=== PATIENT | female | born 1975 | race Two or more races ===

== ENCOUNTER → 2016-11-08 | Outpatient (CLI) | payer BC ==
[~2016-11-08] MED LIST: CETI10CA PO; OMEP-110 PO; VENL37.52 PO
== END ==
LOC: STAR 08:15
PROVIDERS: ATTEND Orthopaedic Surgery
DX: Z02.9 Encounter for administrative examinations, unspecified (principal)

== ENCOUNTER 2016-11-15 08:13 | Day surgery (SDC) | payer BC ==
[~2016-11-15] VITALS: Ht 162.6 cm; Wt 101.2 kg
[~2016-11-15 08:13] MED LIST changes: +BUPIVACAINE/PF 0.5% ONE
[2016-11-15] MEDS ORDERED: LACTATED RINGERS 1,000 ML IV SCH (08:37)
[2016-11-15 08:38] VITALS: BP 125/86
[2016-11-15] MEDS ORDERED: LIDOCAINE 1%, 2ML SQ PRN (09:00)
[2016-11-15] MEDS ORDERED: FENTANYL PF 100 MCG/2ML ONE ×3 (09:06→12:17)
[2016-11-15] MEDS ORDERED: MIDAZOLAM 1 MG/ML, 2ML ONE (09:06)
[2016-11-15 09:16] LABS: HCG UR OBC PASS
[2016-11-15] MEDS ORDERED: EPINEPHRINE 1 MG/ML, 1ML ONE ×2 (10:26→14:27)
[2016-11-15] MEDS ORDERED: LIDOCAINE/PF 1%, 30ML ONE (10:26)
[2016-11-15] MEDS ORDERED: ALBUTEROL/IPRATROPIUM 2.5MG/0.5MG, 3 ML NPPB PRN (11:30)
[2016-11-15] MEDS ORDERED: PROMETHAZINE 25 MG/ML, 1ML IV PRN (11:30)
[2016-11-15] MEDS ORDERED: ACETAMINOPHEN 325 MG TABLET PO PRN (11:30)
[2016-11-15] MEDS ORDERED: OXYcodone 5 MG/5 ML ORAL.SOL UDC PO PRN (11:30)
[2016-11-15] MEDS ORDERED: hydrALAzine 20 MG/ML, 1ML IV PRN (11:30)
[2016-11-15] MEDS ORDERED: MIDAZOLAM 1 MG/ML, 2ML IV PRN (11:30)
[2016-11-15] MEDS ORDERED: ONDANSETRON 2MG/ML, 2ML IVPush PRN (11:30)
[2016-11-15] MEDS ORDERED: LABETALOL 5MG/ML, 20ML IV PRN (11:30)
[2016-11-15] MEDS ORDERED: MEPERIDINE/PF 25MG/0.5ML IVPush PRN (11:30)
[2016-11-15] MEDS ORDERED: MEPERIDINE/PF 25MG/0.5ML ONE (12:07)
[2016-11-15] MEDS ORDERED: OXYcodone 5 MG/5 ML ORAL.SOL UDC ONE ×3 (12:17→15:46)
[2016-11-15] MEDS ORDERED: ACETAMINOPHEN 650 MG/20.3 ML UDC ONE (12:17)
[2016-11-15] MEDS ORDERED: ACETAMINOPHEN 325 MG/10.15 ML UDC ONE (12:17)
[2016-11-15] MEDS: FENTANYL PF 100 MCG/2ML IV PRN ×2 (12:20→12:30)
[2016-11-15] MEDS ORDERED: HYDROmorphone 1 MG/ML, 1ML ONE (12:32)
[2016-11-15] MEDS: HYDROmorphone 1 MG/ML, 1ML IV PRN ×3 (12:34→15:12)
[2016-11-15] MEDS ORDERED: ADENOSINE 6 MG/2 ML ONE ×2 (12:45→12:56)
[2016-11-15] MEDS ORDERED: ESMOLOL 100 MG/10 ML ONE (12:59)
[2016-11-15] MEDS ORDERED: METOPROLOL 1 MG/ML, 5ML ONE ×3 (13:08→14:34)
[2016-11-15] MEDS: METOPROLOL 1 MG/ML, 5ML IVPush PRN ×6 (13:08→14:40)
[2016-11-15] MEDS ORDERED: ESMOLOL/NS PMX 250 ML IV STA (13:14)
[2016-11-15] MEDS ORDERED: ADENOSINE 6 MG/2 ML IVPush ONE ×2 (13:30)
[2016-11-15] MEDS ORDERED: METOCLOPRAMIDE 5 MG/ML, 2ML ONE (16:41)
[2016-11-15] MEDS ORDERED: DEXAMETHASONE 4 MG/ML, 1ML ONE (16:41)
[2016-11-15] MEDS ORDERED: CEFAZOLIN 1,000 MG ONE (16:41)
[2016-11-15] MEDS ORDERED: PROPOFOL 10 MG/ML, 20ML ONE (16:41)
[2016-11-15] MEDS ORDERED: KETOROLAC 30 MG/1 ML ONE (16:41)
[2016-11-15] MEDS ORDERED: ONDANSETRON 2MG/ML, 2ML ONE (16:41)
== END 2016-11-15 18:00 ==
LOC: OUT 08:13
PROVIDERS: ATTEND Orthopaedic Surgery
DX: S83.511A Sprain of anterior cruciate ligament of right knee, initial encounter (principal); S83.281A Other tear of lateral meniscus, current injury, right knee, initial encounter; S83.241A Other tear of medial meniscus, current injury, right knee, initial encounter; M65.861 Other synovitis and tenosynovitis, right lower leg; K21.9 Gastro-esophageal reflux disease without esophagitis; J45.909 Unspecified asthma, uncomplicated; E66.9 Obesity, unspecified; Z68.38 Body mass index [BMI] 38.0-38.9, adult; X58.XXXA Exposure to other specified factors, initial encounter; Y93.89 Activity, other specified; Y92.89 Other specified places as the place of occurrence of the external cause; Y99.8 Other external cause status
CPT/HCPCS: 29880; 29888; 36415; 73560; 76000; 80051; 81025; 93005; C1713; C1762; J0153; J0171; J0690; J1100; J1170; J1885; J2175; J2250; J2405; J2704; J2765; J3010; J3490; J7120